=== PATIENT | male | born 1960 | race Caucasian/White ===

== ENCOUNTER → 2020-06-14 13:42 | Outpatient (CLI) | payer BC, SELFPAY ==
--- NOTE | ~2020-06-14 | MR_ITS ---
EXAMINATION: MR cervical spine wo con EXAM DATE: 06/14/2020 14:47 INDICATION: Cervical radiculopathy. Neck pain and right arm numbness. TECHNIQUE: Multi-sequential, multiplanar MR images of the cervical spine were obtained without contra st. Axial T2, axial T2 MERGE sequence. Sagittal T1, T2, T2 fat saturation images also obtained. Th ere is no prior study for comparison. FINDINGS: Moderate loss of the C5-6 and 6-7 disc height. The vertebral body and disc heights are oth erwise well maintained. The vertebral bodies are aligned in the AP dimension. The spinal cord signal intensity and intrinsic morphology is normal. Cervicomedullary junction is normal in appearance. Ther e are no suspicious marrow signal abnormalities. Paraspinal soft tissue is unremarkable. Level by level evaluation: C2-C3: Disc does not extend beyond the endplate margin. Uncovertebral joint arthropathy: Mild left. Facet joint arthropathy: Moderate left, mild right. Neural foraminal stenosis: Moderate left, mild right. Central canal stenosis: No stenosis. C3-C4: There is a minimal diffuse disc bulge. Uncovertebral joint arthropathy: Mild bilateral. Facet joint arthropathy: Moderate bilateral. Neural foraminal stenosis: Mild to moderate bilateral. Central canal stenosis: No stenosis. C4-C5: Disc does not extend beyond the endplate margin. Uncovertebral joint arthropathy: Mild bilateral. Facet joint arthropathy: Moderate left, mild to moderate right. Neural foraminal stenosis: Moderate left, mild right. Central canal stenosis: No stenosis. C5-C6: There is a mild to moderate diffuse disc bulge asymmetric to the right Uncovertebral joint arthropathy: Moderate to severe right, moderate left. Facet joint arthropathy: Moderate bilateral. Neural foraminal stenosis: Severe bilateral. Central canal stenosis: Mild. C6-C7: There is a mild to moderate diffuse disc bulge asymmetric to the right Uncovertebral joint arthropathy: Severe right, moderate left. Facet joint arthropathy: Moderate bilateral. Neural foraminal stenosis: Severe right, moderate to severe left. Central canal stenosis: Mild. C7-T1: Disc does not extend beyond the endplate margin. Uncovertebral joint arthropathy: Mild bilateral. Facet joint arthropathy: Moderate right, mild to moderate left. Neural foraminal stenosis: Mild to moderate bilateral. Central canal stenosis: No stenosis. IMPRESSION: Significant neural foraminal stenosis C5-6 and 6-7. Reviewed, dictated and finalized at location A.
== END ==
PROVIDERS: PCP Family Medicine; Visit Provider Family Medicine
DX: M50.30 Other cervical disc degeneration, unspecified cervical region (principal)
CPT/HCPCS: 72141

== ENCOUNTER → 2021-01-01 08:27 | Outpatient (CLI) | payer BC, SELFPAY ==
--- NOTE | ~2021-01-01 | CT_ITS ---
EXAMINATION: CT cervical spine wo [facility] EXAM DATE: 01/01/2021 08:42 INDICATION: Cervical disc disorder with myelopathy . Right arm numbness. TECHNIQUE: Spiral CT of the cervical spine was performed without contrast. Axial images were reviewe d. Coronal and sagittal reformatted images cervical spine were also reviewed. The dose-length produc t (DLP) for this examination was 315.07 mGy-cm. The exposure was tailored according to patient size (auto mA exposure control), and iterative reconstruction (ASIR) was used as additional dose reduction technique. Correlation is made to MR cervical spine 06/14/2020. FINDINGS: There is moderate disc disease at C6-7, mild to moderate at C5-6 and mild at the other lev els above. There are small anterolateral bridging endplate osteophytes. The vertebral bodies are alig jairo in the AP dimension. The odontoid process is intact. The lateral masses of C1 line up with C2. Prevertebral soft tissue and pre-dens space are within normal limits. Paraspinal soft tissue is unr emarkable. Level by level evaluation: C2-C3: Disc does not extend beyond the endplate margin. Uncovertebral joint arthropathy: None. Facet joint arthropathy: Moderate to severe left, mild right. Neural foraminal stenosis: Mild left. Central canal stenosis: No stenosis. C3-C4: Disc does not extend beyond the endplate margin. Uncovertebral joint arthropathy: Mild bilateral. Facet joint arthropathy: Mild to moderate bilateral. Neural foraminal stenosis: No stenosis. Central canal stenosis: No stenosis. C4-C5: Disc does not extend beyond the endplate margin. Uncovertebral joint arthropathy: None. Facet joint arthropathy: Moderate left, mild right. Neural foraminal stenosis: Mild to moderate left. Central canal stenosis: No stenosis. C5-C6: There is posterior disc osteophyte complex. Uncovertebral joint arthropathy: Moderate to severe right, moderate left. Facet joint arthropathy: Moderate bilateral. Neural foraminal stenosis: Moderate bilateral. Central canal stenosis: Mild. C6-C7: There is posterior disc osteophyte complex. Uncovertebral joint arthropathy: Severe right, moderate to severe left. Facet joint arthropathy: Moderate to severe left, moderate right. Neural foraminal stenosis: Severe right, moderate to severe left. Central canal stenosis: Mild. C7-T1: Disc does not extend beyond the endplate margin. Uncovertebral joint arthropathy: Mild bilateral. Facet joint arthropathy: Mild to moderate bilateral. Neural foraminal stenosis: No stenosis. Central canal stenosis: No stenosis. IMPRESSION: 1. Cervical spondylosis as detailed above, with the right C6-7 neural foramina severely narrowed. Reviewed, dictated and finalized at location B.
== END ==
PROVIDERS: PCP Family Medicine; Visit Provider Neurological Surgery
DX: M50.03 Cervical disc disorder with myelopathy, cervicothoracic region (principal); M47.892 Other spondylosis, cervical region
CPT/HCPCS: 72125